=== PATIENT | male | born 1970 | race Caucasian/White ===

== ENCOUNTER 2018-04-15 17:37 | Emergency (ER) | payer MEDICAID, SELFPAY ==
[2018-04-15 17:53] VITALS: BP 136/82; PULSE 74; RESP 16; TEMP 36.7; O2SAT 97
--- NOTE | 2018-04-15 18:08 | W.ED.GENAD ---
Discharge Plan Disposition Patient Disposition: HOME Condition: Improving Discharge Details Chief Complaint: Nk/Back Pain Clinical Impression: Acute lumbar myofascial strain Primary Care Provider: Donna Loyd ED Provider: Mino Emmanuel Home Meds and New Rx's Prescriptions: New methocarbamol 500 mg tablet 500 mg PO Q6H PRN (Reason: Back pain or spasm) Qty: 14 RF: 0 Continued methylphenidate HCl [Ritalin] 10 MG tablet 20 mg PO TID RF: 0 diphenhydramine HCl 25 mg Tablet 25 mg PO QHS PRNRF: 0 Discharge Instructions Instructions: Muscle Strain (ED) Additional Instructions: Remove the Lidoderm patch in 12 hours. May use ibuprofen 600 800 mg per 8 hours for pain. Tylenol if needed for breakthrough pain. May try methocarbamol as prescribed, as needed for muscle pain and spasm. Return for worsening pain, new symptoms, or any other acute concerns. Please follow-up with regular doctor if not improving in 3-5 days time Medical Decision Making 47-year-old male presents from home with days of intermittent episodes of left low back pain that are worse when he bends over and abruptly stands up. He denies any recent illness or injury but does have recent initiation of working at a [employer]. He has normal vital signs. He is tender along the iliacus muscle and paraspinous musculature in the lumbar region. Consistent with lumbar strain. Will treat with Lidoderm patch and trial of methocarbamol. He may continue [id number] medicines including NSAIDs as well. He will follow-up with primary care next week if not improving over the weekend HPI General Mode of arrival: ambulatory. Date/Time Provider Initiated Documentation: 04/15/18 17:49. Limitations to Documentation: no limitations. Information obtained by: patient. History of Present Illness 47 year old M presents to the emergency department with the chief complaint of Left low back pain, described as moderate, Quality is described as aching, Patient proximal and distal. Patient started experiencing this day(s) and it has been intermittent. Rest improves symptom(s), Movement worsens symptoms . Patient notes no other symptoms. and other (No chest pain\difficulty breathing\motor weakness\ or numbness). Patient did receive the following treatments prior to arrival, none Related Data Home Medications Medication Instructions Recorded Confirmed methylphenidate HCl [Ritalin] 20 mg PO TID 02/22/17 04/15/18 diphenhydramine HCl 25 mg PO QHS PRN 04/15/18 04/15/18 methocarbamol 500 mg PO Q6H PRN #14 tab 04/15/18 Previous Rx's Medication Instructions Recorded methocarbamol 500 mg PO Q6H PRN #14 tab 04/15/18 Allergies Allergy/AdvReac Type Severity Reaction Status Date / Time No Known Allergies Allergy Unverified 04/15/18 17:58 General Stated Complaint: Nk/Back Pain BIMAL: 4 Review of Systems Review of Systems 6 systems reviewed and otherwise negative [facility] Social History Smoking/Tobacco Use Status: Current every day Exam Narrative Exam Narrative: GEN: awake, alert, oriented 3. Pleasant, well groomed, interactive. HEAD: Normocephalic, atraumatic ENT: Mucous membranes moist, oropharynx unremarkable, External ear exam unremarkable EYES: PERRL, EOMI NECK: Full ROM, no DAKOTA, no menigismus CHEST/RESP: Nontender, clear to auscultation bilateral, no wheeze/rhonchi/rales CARDIOVASCULAR: RRR, no murmur, rub damian. 2+ Rad pulse bilateral ABDOMEN: Soft, nontender, no mass. +Bowel sounds BACK: Left lumbar paraspinous tenderness and mild spasm present EXT: Full ROM, no edema, no rash. Motor is 5 out of 5 in the bilateral lower extremity. Sensation intact throughout. Gait narrow based with good heel strike Neuro: Grossly normal neurologic exam, conversant, interactive. Psych: Speech fluent, thoughts congruent, affect normal Course Vital Signs Temperature 36.7 C 04/15/18 17:53 Pulse 74 04/15/18 17:53 Respiratory Rate 16 04/15/18 17:53 Blood Pressure 136/82 04/15/18 17:53 Pulse Oximetry 97 04/15/18 17:53 Temperature 36.7 C 04/15/18 17:53 Temperature Source Temporal Artery Scan 04/15/18 17:53 Pulse 74 04/15/18 17:53 Respiratory Rate 16 04/15/18 17:53 Respiratory Effort Non-Labored 04/15/18 17:57 Blood Pressure 136/82 04/15/18 17:53 Blood Pressure Position Sitting 04/15/18 17:53 Pulse Oximetry 97 04/15/18 17:53 Pain Level 4 04/15/18 18:01
--- NOTE | 2018-04-15 18:12 | ED.GENADUL_ITS ---
Discharge Plan Disposition Patient Disposition: HOME Condition: Improving Discharge Details Chief Complaint: Nk/Back Pain Clinical Impression: Acute lumbar myofascial strain Primary Care Provider: Donna Loyd ED Provider: Mino Emmanuel Home Meds and New Rx's Prescriptions: New methocarbamol 500 mg tablet 500 mg PO Q6H PRN (Reason: Back pain or spasm) Qty: 14 RF: 0 Continued methylphenidate HCl [Ritalin] 10 MG tablet 20 mg PO TID RF: 0 diphenhydramine HCl 25 mg Tablet 25 mg PO QHS PRNRF: 0 Discharge Instructions Instructions: Muscle Strain (ED) Additional Instructions: Remove the Lidoderm patch in 12 hours. May use ibuprofen 600 800 mg per 8 hours for pain. Tylenol if needed for breakthrough pain. May try methocarbamol as prescribed, as needed for muscle pain and spasm. Return for worsening pain, new symptoms, or any other acute concerns. Please follow-up with regular doctor if not improving in 3-5 days time Medical Decision Making 47-year-old male presents from home with days of intermittent episodes of left low back pain that are worse when he bends over and abruptly stands up. He denies any recent illness or injury but does have recent initiation of working at a [employer]. He has normal vital signs. He is tender along the iliacus muscle and paraspinous musculature in the lumbar region. Consistent with lumbar strain. Will treat with Lidoderm patch and trial of methocarbamol. He may continue [id number] medicines including NSAIDs as well. He will follow-up with primary care next week if not improving over the weekend HPI General Mode of arrival: ambulatory . Date/Time Provider Initiated Documentation: 04/15/18 17:49 . Limitations to Documentation: no limitations . Information obtained by: patient . History of Present Illness 47 year old M presents to the emergency department with the chief complaint of Left low back pain, described as moderate, Quality is described as aching, Patient proximal and distal. Patient started experiencing this day(s) and it has been intermittent. Rest improves symptom(s), Movement worsens symptoms . Patient notes no other symptoms. and other (No chest pain\difficulty breathing\motor weakness\ or numbness). Patient did receive the following treatments prior to arrival, none Related Data Home Medications Medication Instructions Recorded Confirmed methylphenidate HCl [Ritalin] 20 mg PO TID 02/22/17 04/15/18 diphenhydramine HCl 25 mg PO QHS PRN 04/15/18 04/15/18 methocarbamol 500 mg PO Q6H PRN #14 tab 04/15/18 Previous Rx's Medication Instructions Recorded methocarbamol 500 mg PO Q6H PRN #14 tab 04/15/18 Allergies Allergy/AdvReac Type Severity Reaction Status Date / Time No Known Allergies Allergy Unverified 04/15/18 17:58 General Stated Complaint: Nk/Back Pain BIMAL: 4 Review of Systems Review of Systems 6 systems reviewed and otherwise negative [facility] Social History Smoking/Tobacco Use Status: Current every day Exam Narrative Exam Narrative: GEN: awake, alert, oriented 3. Pleasant, well groomed, interactive. HEAD: Normocephalic, atraumatic ENT: Mucous membranes moist, oropharynx unremarkable, External ear exam unremarkable EYES: PERRL, EOMI NECK: Full ROM, no DAKOTA, no menigismus CHEST/RESP: Nontender, clear to auscultation bilateral, no wheeze/rhonchi/rales CARDIOVASCULAR: RRR, no murmur, rub damian. 2+ Rad pulse bilateral ABDOMEN: Soft, nontender, no mass. +Bowel sounds BACK: Left lumbar paraspinous tenderness and mild spasm present EXT: Full ROM, no edema, no rash. Motor is 5 out of 5 in the bilateral lower extremity. Sensation intact throughout. Gait narrow based with good heel strike Neuro: Grossly normal neurologic exam, conversant, interactive. Psych: Speech fluent, thoughts congruent, affect normal Course Vital Signs Temperature 36.7 C 04/15/18 17:53 Pulse 74 04/15/18 17:53 Respiratory Rate 16 04/15/18 17:53 Blood Pressure 136/82 04/15/18 17:53 Pulse Oximetry 97 04/15/18 17:53 Temperature 36.7 C 04/15/18 17:53 Temperature Source Temporal Artery Scan 04/15/18 17:53 Pulse 74 04/15/18 17:53 Respiratory Rate 16 04/15/18 17:53 Respiratory Effort Non-Labored 04/15/18 17:57 Blood Pressure 136/82 04/15/18 17:53 Blood Pressure Position Sitting 04/15/18 17:53 Pulse Oximetry 97 04/15/18 17:53 Pain Level 4 04/15/18 18:01
[2018-04-15] MEDS: Lidocaine 5% Patch 1 PATCH TP (18:24)
== END 2018-04-15 18:28 | disposition home or self-care (01) ==
LOC: ER 18:17
PROVIDERS: Emergency Provider Emergency Medicine; PCP Nurse Practitioner Family
DX: S39.012A Strain of muscle, fascia and tendon of lower back, initial encounter (principal); X58.XXXA Exposure to other specified factors, initial encounter
CPT/HCPCS: 99283

== ENCOUNTER 2018-11-23 08:49 | Outpatient (CLI) | payer SELFPAY ==
--- NOTE | 2018-11-23 09:56 | DI.US_ITS ---
SYMPTOM/DIAGNOSIS: LEG PAIN, M79.605, DVT, I82.90 LEFT LOWER EXTREMITY ULTRASOUND: The common femoral, superficial femoral and popliteal veins as well as posterior tibial veins appear free of thrombus. Echogenic, partially occluding thrombus is noted in the greater saphenous vein proximally 9 mm. from the saphenofemoral junction. There is also some old appearing, partially occluding thrombus seen in the medial calf region. The patient had a superficial clot in this area on the previous exam from 2017. 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 No evidence of acute DVT.
== END 2018-11-23 09:09 ==
PROVIDERS: PCP Nurse Practitioner Family; Visit Provider Nurse Practitioner Family
DX: M79.662 Pain in left lower leg (principal); I82.812 Embolism and thrombosis of superficial veins of left lower extremity
CPT/HCPCS: 93971

== ENCOUNTER 2019-04-19 19:16 | Emergency (ER) | payer MEDICAID, SELFPAY ==
[2019-04-19 19:31] VITALS: BP 144/85; PULSE 92; RESP 18; TEMP 36.5; O2SAT 95
[2019-04-19 19:36] VITALS: RESP 18
--- NOTE | 2019-04-19 20:35 | ED.GENADUL_ITS ---
Discharge Plan Disposition Patient Disposition: HOME Condition: Good Discharge Details Chief Complaint: Vascular Clinical Impression: Calf pain Primary Care Provider: Luli Allison ED Provider: Eloina Mcmullen Home Meds and New Rx's Prescriptions: Continued methylphenidate HCl [Ritalin] 10 MG tablet 20 mg PO TID RF: 0 lorazepam [Ativan] 0.5 mg Tablet 0.5 mg PO DAILY PRNRF: 0 diphenhydramine HCl 25 mg Tablet 25 mg PO QHS PRNRF: 0 Discharge Instructions Instructions: Leg Pain (ED) Additional Instructions: Encourage rest, ice, elevation. Continue with Tylenol and/or Ibuprofen as needed for discomfort. If you develop increased pain, fevers/chills or other new/worsening symptoms please seek care urgently once again. Follow up with primary care in one week for reevaluation. Referrals: Luli Allison [Primary Care Provider] - Discharge Data Discharge Date/Time-TO BE ENTERED AT DEPARTURE: 04/19/19 22:05 Medical Decision Making Patient is a pleasant 48-year-old male presents today with chief complaint of l eft calf pain x3 weeks. He denies traumatic onset. States the pain is been intermittent. Indicates the lateral aspect of the lower half of the calf is area of maximal discomfort. States the pain is worse with activity. Denies any shortness of breath or chest pain. Reports that he did have a DVT historically but he is no longer anticoagulated. Reports that he was anticoagulated 1 year post DVT. Unclear etiology around the previous clot. States the pain is different than when he had his DVT historically. Denies any fevers or chills. No recent travel. On exam, patient is resting comfortably. Normal cardiac and respiratory exam. Calf is soft and nontender. He has 2+ distal pulses. He does have a small area of ecchymosis over the lateral malleolus and is scant swelling at the area of ecchymosis. There is approximately 1 inch diameter. Patient is not point tender over the lateral malleolus. Does not believe that he injured himself. At this time evening, I am unable to obtain a ultrasound. As he has no known trauma, I highly doubt any bony abnormality. However, with the patient's history, DVT is on my differential. Will obtain a d-dimer. D-dimer is negative at 171. Discussed these findings with the patient. As he does have area of ecchymosis and swelling of the lateral aspect of the ankle, just distal to where the pain was initially indicated by the patient, this may be associated with minor injury leading to ankle sprain. I encouraged rest, ice, elevation. Tylenol and/or ibuprofen as needed for discomfort. He was given return precautions. Advise follow-up with primary care in 1 week if pain is not improving. All his questions and concerns were addressed and is in agreement this plan. HPI General Mode of arrival: ambulatory . Date/Time Provider Initiated Documentation: 04/19/19 20:35 . Limitations to Documentation: no limitations . Information obtained by: patient, family and RN notes reviewed . History of Present Illness 48 year old M presents to the emergency department with the chief complaint of left calf pain, described as moderate, with intensity rated at 7. Quality is described as aching, and is localized to the left and lower extremity. Patient reports no radiation. Patient started experiencing this week(s) (3) and it has been intermittent. No relieving factors improve symptom(s), Movement worsens symptoms . Patient notes no other symptoms.. Patient did receive the following treatments prior to arrival, none Related Data Home Medications Medication Instructions Recorded Confirmed methylphenidate HCl [Ritalin] 20 mg PO TID 02/22/17 04/19/19 diphenhydramine HCl 25 mg PO QHS PRN 04/15/18 04/19/19 lorazepam [Ativan] 0.5 mg PO DAILY PRN 04/19/19 04/19/19 Allergies Allergy/AdvReac Type Severity Reaction Status Date / Time No Known Allergies Allergy Unverified 04/15/18 17:58 General Stated Complaint: Vascular BIMAL: 3 Review of Systems Constitutional Constitutional: Reports as per HPI, Denies chills, Denies fever(s), Denies heada florencia(s) and Denies weakness ENT Ears, Nose, Mouth, and Throat: Denies headache(s) Cardiovascular Cardiovascular: Reports as per HPI, Denies chest pain, Denies dyspnea and Denies dyspnea on exertion Respiratory Respiratory: Reports as per HPI, Denies cough, Denies hemoptysis, Denies pain on inspiration, Denies pain with cough, Denies dyspnea and Denies dyspnea on exertion Musculoskeletal Musculoskeletal: Reports as per HPI and Denies tingling Integumentary/Breasts Skin/Breast: Reports as per HPI, Denies rash and Denies wounds Neurologic Neurologic: Reports as per HPI, Denies headache(s), Denies tingling, Denies paresthesias and Denies weakness [facility] Social History Smoking/Tobacco Use Status: Current every day Tobacco Type: cigarettes Alcohol Intake: current Alcohol Intake frequency: holidays/special occasions only Drug use: Never Substance use type: does not use Do you feel safe at home: Yes Do you feel safe in your relationship?: Yes Exam Const General: cooperative, healthy appearing, comfortable, no acute distress, well developed and well groomed Nutritional Appearance: average body habitus and well nourished Orientation: alert and awake Resp Effort & Inspection: normal respiratory effort, able to speak in complete sentences and no respiratory distress Auscultation: clear to auscultation bilaterally Cardio Rate: regular rate Rhythm: regular rhythm Heart Sounds: S1 normal and S2 normal Skin General skin exam: no rashes or lesions noted Lesions: no lesions Rashes: no rashes Trauma: no lacerations or abrasions Neuro General: alert and awake Cognition: normal cognition Speech: speech normal Gait: normal gait Motor: muscle tone normal throughout Sensory Exam: no sensory deficits noted Extrem General: normal to inspection, full ROM, normal capillary refill, no joint enlargement, no pedal edema, no calf tenderness, normal gait and no calf tenderness bilaterally Left lower extremity: normal to inspection, full ROM, normal capillary refill, no joint enlargement, knee Details: normal to inspection, lower leg (indicates lateral calf as area of pain but none elicited with exam) Details: normal to inspection and no edema; no tenderness, no localized swelling, no palpable cords and no crepitus and ankle (small area of ecchymosis and swelling over lateral epicondyle, no pain ) Details: swelling, no edema, normal ROM and ecchymosis; no tenderness, no warmth, no abrasions, no lacerations and achilles tendon exam normal Psych Appearance: grossly normal and well kempt Mental Status: mental status grossly normal Speech and Movement: speech and movement normal Course Vital Signs Vital signs: Vital Signs Temperature 36.5 C 04/19/19 19:31 Pulse 92 H 04/19/19 19:31 Respiratory Rate 18 04/19/19 19:31 Blood Pressure 144/85 H 04/19/19 19:31 Pulse Oximetry 95 04/19/19 19:31 Temperature 36.5 C 04/19/19 19:31 Temperature Source Temporal Artery Scan 04/19/19 19:31 Pulse 92 H 04/19/19 19:31 Respiratory Rate 18 04/19/19 19:36 Respiratory Effort Non-Labored 04/19/19 19:36 Respiratory Depth Normal 04/19/19 19:36 Respiratory Pattern Normal 04/19/19 19:36 Blood Pressure 144/85 H 04/19/19 19:31 Blood Pressure Position Sitting 04/19/19 19:31 Pulse Oximetry 95 04/19/19 19:31 Oxygen Delivery Method Room Air 04/19/19 19:31 Oxygen Flow Rate 0 04/19/19 19:31 Pain Level 7 04/19/19 19:36
[2019-04-19 21:04] LABS: Abs Immature Grans 0.04 k/cumm (0.0-0.09); Absolute Basophil Count 0.02 k/cumm (0.0-0.2); Absolute Eosinophil Count 0.06 k/cumm (0.0-0.7); Absolute Lymphocyte Count 1.89 k/cumm (1.2-3.4); Absolute Monocyte Count 0.93 k/cumm (0.11-0.7); Absolute Neutrophil Count 9.02 k/cumm (1.2-6.7); Basophils % 0.2; Eosinophils % 0.5; HCT 46.5 % (40.0-50.0); Immature Grans % 0.3 %; Lymphocytes % 15.8; Mean Corp. HGB Concentration 34.4 g/dL (32.0-36.0); Mean Corpuscular Hemoglobin 31.5 pg (27.0-33.0); Mean Corpuscular Volume 91.5 fL (80-95); Monocytes % 7.8; Neutrophils % 75.4; Platelet Count 224 x1000/uL (130-400); RBC 5.08 m/cumm (4.50-6.00); White Blood Cell Count 11.96 k/cumm (4.4-10.8)
[2019-04-19 21:16] LABS: INR 1.1 (0.9-1.1); PTT Activated 24.6 sec (21.0-31.4); Prothrombin Time 11.4 sec (9.3-11.0)
[2019-04-19 21:18] LABS: ALT 19 U/L (16-63); AST 12 U/L (15-37); Albumin 4.1 g/dL (3.4-5.0); Alkaline Phosphatase 61 U/L (46-116); BUN 12 mg/dL (7-18); Bilirubin, Total 0.5 mg/dL (0.2-1.0); CREATININE 0.98 mg/dL (0.70-1.30); Calcium 8.6 mg/dL (8.5-10.1); Chloride 104 mmol/L (98-107); Glucose 90 mg/dL (74-106); Potassium 3.4 mmol/L (3.5-5.1); Sodium 143 mmol/L (136-145); Total Protein 7.3 g/dL (6.4-8.2)
[2019-04-19 21:31] LABS: D-Dimer 171 ng/mlFEU (<500)
== END 2019-04-19 22:05 | disposition home or self-care (01) ==
PROVIDERS: Emergency Provider Physician Assistant; PCP Nurse Practitioner Family
DX: M79.662 Pain in left lower leg (principal); R26.2 Difficulty in walking, not elsewhere classified; Z86.718 Personal history of other venous thrombosis and embolism
CPT/HCPCS: 36415; 80053; 99283; 85025; 85379; 85610; 85730

== ENCOUNTER 2020-10-04 11:38 | Outpatient (REF) | payer MEDICAID, SELFPAY ==
[2020-10-04 16:09] LABS: BUN 20 mg/dL (7-18); CREATININE 0.8 mg/dL (0.70-1.30); Calcium 8.6 mg/dL (8.5-10.1); Calculated LDL 88 mg/dL (<100); Chloride 108 mmol/L (98-107); Cholesterol 147 mg/dL (<200); Glucose 84 mg/dL (74-106); HDL Cholesterol 42 mg/dL (40-60); Potassium 4.3 mmol/L (3.5-5.1); Sodium 146 mmol/L (136-145); Triglyceride 87 mg/dL (<150)
== END 2020-10-04 11:39 | disposition home or self-care (01) ==
LOC: LBN 11:38
PROVIDERS: Visit Provider Nurse Practitioner Family
DX: F41.8 Other specified anxiety disorders (principal); F17.200 Nicotine dependence, unspecified, uncomplicated; F90.9 Attention-deficit hyperactivity disorder, unspecified type; Z13.220 Encounter for screening for lipoid disorders
CPT/HCPCS: 80048; 80061

== ENCOUNTER 2021-12-28 17:02 | Emergency (ER) | payer MEDICAID, SELFPAY ==
[2021-12-28 17:25] VITALS: BP 167/93; PULSE 71; RESP 16; TEMP 36.7; O2SAT 98
--- NOTE | 2021-12-28 17:47 | ED.GENADUL_ITS ---
Discharge Plan Disposition Patient Disposition: HOME Condition: Stable Discharge Details Clinical Impression: Lumbago Primary Care Provider: Luli Allison ED Provider: Marcella Tellez Home Meds and New Rx's Prescriptions: New cyclobenzaprine 10 mg tablet 10 mg PO TID PRNQty: 14 0RF Continued methylphenidate HCl [Ritalin] 10 MG tablet 20 mg PO TID lorazepam [Ativan] 0.5 mg Tablet 0.5 mg PO DAILY PRN diphenhydramine HCl 25 mg Tablet 25 mg PO QHS PRN Discharge Instructions Instructions: Low Back Strain (ED) Additional Instructions: Continue light stretching and movement Refrain from lifting more than 10 pounds for the next several days Take ibuprofen 600 mg every 8 hours with food as needed for discomfort You may take Tylenol 650 mg every 6 hours as needed for discomfort The Flexeril can make you drowsy, do not drive for 8 hours after taking this medication or combine with alcohol Recheck with your doctor in 5 days with persistent pain Return earlier should you have changes in bowel or bladder, weakness of your extremities, or with any new or worsening complaints Referrals: Luli Allison [Primary Care Provider] - Medical Decision Making Patient appears well Ambulatory with steady gait Given a prescription for Flexeril, will take ibuprofen and Tylenol Return precautions discussed and patient expressed understanding Medical Records Medical records reviewed: Yes I reviewed the patient's medical records. Lab Data Lab results reviewed: Yes I reviewed the patient's lab results. HPI General Date/Time Provider Initiated Documentation: 12/28/21 17:18 . HPI Narrative: This 49-year-old male presents with back pain along bilateral sides of his lower back. This started after lifting some heavy furniture. This took several hours for onset of pain. Patient took Aleve in an attempt to alleviate the pain but presents secondary to persistent discomfort. Denies any fever or chills. Denies any radiation of pain or weakness. Denies any groin numbness or changes in bowel or bladder. Pain is exacerbated with movement and describes it as an ache. Denies any abdominal pain. Related Data Home Medications Medication Instructions Recorded Confirmed methylphenidate HCl 10 mg tablet 20 mg PO TID 02/22/17 04/19/19 (Ritalin) diphenhydramine HCl 25 mg tablet 25 mg PO QHS PRN 04/15/18 04/19/19 lorazepam 0.5 mg tablet (Ativan) 0.5 mg PO DAILY PRN 04/19/19 04/19/19 cyclobenzaprine 10 mg tablet 10 mg PO TID PRN #14 tabs 12/28/21 Previous Rx's Medication Instructions Recorded cyclobenzaprine 10 mg tablet 10 mg PO TID PRN #14 tabs 12/28/21 Allergies Allergy/AdvReac Type Severity Reaction Status Date / Time No Known Allergies Allergy Unverified 10/04/20 15:37 General Stated Complaint: Nk/Back Pain BIMAL: 4 Review of Systems All systems reviewed & are unremarkable except as noted in HPI and below PFSH All Active Problems (Updated 12/28/21 @ 17:49 by JUSTIN Cordero) Lumbago (Acute) Varicose veins of both lower extremities (Acute) Tobacco dependence (Acute) Depression (Chronic) Chronic anxiety (Acute) Superficial thrombophlebitis (Acute) ADHD (Acute) Eczema, dyshidrotic (Acute) Screening for colon cancer (Acute) Calf pain (Acute) Medical History (Updated 12/28/21 @ 17:49 by JUSTIN Cordero) History of DVT (deep vein thrombosis) Social History (System 10/04/20 @ 15:37 by Nallely Castanon) Smoking/Tobacco Use Status: Current every day Tobacco Type: cigarettes Smoking risk assessment performed?: Yes Alcohol Intake: current Alcohol Intake frequency: holidays/special occasions only Drug use: Never Substance use type: does not use Do you feel safe at home: Yes Do you feel safe in your relationship?: Yes Exam Const General: cooperative and comfortable Orientation: alert and oriented x3 Resp Effort & Inspection: normal respiratory effort Auscultation: clear to auscultation bilaterally Cardio Rate: regular rate Rhythm: regular rhythm Other: distal pulses intact GI Other: No abdominal bruit or pulsatile mass, no CVA tenderness Skin General skin exam: no rashes or lesions noted Neuro General: patient alert and patient oriented x3 Other: Negative straight leg raise, negative Babinski, strength and sensation intact distally, DTRs intact to bilateral lower extremities, Extrem Other: Distal pulses intact Course Vital Signs Vital signs: Vital Signs Temperature 36.7 C 12/28/21 17:25 Pulse 71 12/28/21 17:25 Respiratory Rate 16 12/28/21 17:25 Blood Pressure 167/93 H 12/28/21 17:25 Pulse Oximetry 98 12/28/21 17:25 Temperature 36.7 C 12/28/21 17:25 Temperature Source Temporal Artery Scan 12/28/21 17:25 Pulse 71 12/28/21 17:25 Respiratory Rate 16 12/28/21 17:25 Blood Pressure 167/93 H 12/28/21 17:25 Blood Pressure Position Sitting 12/28/21 17:25 Pulse Oximetry 98 12/28/21 17:25 Oxygen Delivery Method Room Air 12/28/21 17:25 Oxygen Flow Rate 0 12/28/21 17:25
[2021-12-28] MEDS: Cyclobenzaprine 10 MG TAB, 3 TABS/BTL PO (18:07)
[2021-12-28 18:11] VITALS: BP 167/93; PULSE 71; RESP 16; TEMP 36.7; O2SAT 98
== END 2021-12-28 18:50 | disposition home or self-care (01) ==
PROVIDERS: Emergency Provider Physician Assistant; PCP Nurse Practitioner Family
DX: G89.11 Acute pain due to trauma (principal); M54.50 Low back pain, unspecified; F17.210 Nicotine dependence, cigarettes, uncomplicated; X50.0XXA Overexertion from strenuous movement or load, initial encounter
CPT/HCPCS: 99283; 99284

== ENCOUNTER 2022-09-09 15:38 | Emergency (ER) | payer MEDICAID, SELFPAY ==
--- NOTE | 2022-09-09 15:45 | DI.US_ITS ---
Exam(s) US LOWER EXTREMITY VENOUS RT EXAM: US LOWER EXTREMITY VENOUS RT CLINICAL HISTORY: Pain Swelling TECHNIQUE: Right lower extremity venous ultrasound performed using grayscale, color-flow, and spectr al Doppler analysis. COMPARISON: No exams were available for comparison FINDINGS: The right common femoral, femoral and popliteal veins demonstrate normal compressibility, augmentatio n, and color Doppler. The posterior tibial and peroneal veins are patent. The saphenofemoral junctio n is unremarkable. There is no evidence of a Mcgrath cyst. The soft tissues are unremarkable. IMPRESSION: 1. No evidence of a right lower extremity DVT. 2. Findings were discussed with the emergency department at 4:43 p.m. on 09/09/2022. DATA REPOSITORY:
[2022-09-09 15:47] VITALS: BP 149/98; PULSE 76; RESP 15; TEMP 36.3; O2SAT 97
--- NOTE | 2022-09-09 15:57 | ED.GENADUL_ITS ---
Discharge Plan Disposition Patient Disposition: Home Discharge Details Clinical Impression: Varicose veins of right lower extremity Primary Care Provider: Luli Allison ED Provider: Estrellita Benites Home Meds and New Rx's Prescriptions: No Action methylphenidate HCl [Ritalin] 10 MG tablet 20 mg PO TID Patient Comments: pt reports he does not take this lorazepam [Ativan] 0.5 mg Tablet 0.5 mg PO DAILY PRN Patient Comments: pt reports he does not take this med diphenhydramine HCl 25 mg Tablet 25 mg PO QHS PRN Patient Comments: pt states he does not take this med anymore cyclobenzaprine 10 mg tablet 10 mg PO TID PRNQty: 14 0RF Patient Comments: pt states he does not take this med anymore Discharge Instructions Instructions: Leg Pain (ED) Additional Instructions: No evidence of blood clots on the ultrasound today. I do suspect this is from a varicose vein and a superficial spider vein in your thigh. You may apply compr ess wrap to the area alternate ice and heat. Follow-up with your PCP. Follow up with primary care provider in 3-5 days. Return to ED sooner if any worsening or concerns. Increase oral fluids. Please take Tylenol or Ibuprofen with food every 4-6 hours as needed for pain and swelling. Referrals: Luli Allison [Primary Care Provider] - 1 week Discharge Data Discharge Date/Time-TO BE ENTERED AT DEPARTURE: 09/09/22 17:06 Medical Decision Making 51-year-old male presents to the ER with a chief complaint of right leg pain. Patient reports that few weeks ago he hurt his lower back with some radiation to his right leg he reports that his back is better however his leg is still hurting him. He reports that it feels warm he is concerned for DVT he has had a DVT approximately 5 years ago. Negative ultrasound of right lower extremity for DVT. Discussed home care and use suspect this is superficial varicose vein pain. Pain is localized. This text was generated using [email or web address] system, please disregard any oddities of phrase or misspellings. HPI General Mode of arrival: ambulatory . Date/Time Provider Initiated Documentation: 09/09/22 15:49 . Limitations to Documentation: no limitations . Information obtained by: patient, RN notes reviewed and old records reviewed . HPI Narrative: 51-year-old male presents to the ER with a chief complaint of right leg pain. Patient reports that few weeks ago he hurt his lower back with some radiation to his right leg he reports that his back is better however his leg is still hurting him. He reports that it feels warm he is concerned for DVT he has had a DVT approximately 5 years ago. Related Data Home Medications Medication Instructions Recorded Confirmed methylphenidate HCl 10 mg tablet 20 mg PO TID 02/22/17 04/19/19 (Ritalin) diphenhydramine HCl 25 mg tablet 25 mg PO QHS PRN 04/15/18 04/19/19 lorazepam 0.5 mg tablet (Ativan) 0.5 mg PO DAILY PRN 04/19/19 04/19/19 cyclobenzaprine 10 mg tablet 10 mg PO TID PRN #14 tabs 12/28/21 Previous Rx's Medication Instructions Recorded cyclobenzaprine 10 mg tablet 10 mg PO TID PRN #14 tabs 12/28/21 Allergies Allergy/AdvReac Type Severity Reaction Status Date / Time No Known Allergies Allergy Unverified 09/09/22 15:52 General Stated Complaint: Orthopedic BIMAL: 3 PFSH All Active Problems (Updated 09/09/22 @ 16:57 by Estrellita Benites NP) Varicose veins of right lower extremity (Acute) Varicose veins of both lower extremities (Acute) Tobacco dependence (Acute) Depression (Chronic) Chronic anxiety (Acute) Superficial thrombophlebitis (Acute) ADHD (Acute) Eczema, dyshidrotic (Acute) Screening for colon cancer (Acute) Calf pain (Acute) Medical History (Updated 09/09/22 @ 16:57 by Estrellita Benites NP) History of DVT (deep vein thrombosis) Social History (System 10/04/20 @ 15:37 by Nallely Castanon) Smoking/Tobacco Use Status: Current every day Tobacco Type: cigarettes Smoking risk assessment performed?: Yes Alcohol Intake: current Alcohol Intake frequency: holidays/special occasions only Drug use: Never Substance use type: does not use Do you feel safe at home: Yes Do you feel safe in your relationship?: Yes Exam Narrative Exam Narrative: Constitutional: Alert and oriented x3. Appears stated age. Normal body habitus. Chest: RRR, Normal S1, S2, distal pulses intact. Resp: Lungs clear to auscultation bilaterally, no wheezes, rales, or rhonchi. Abdomen: Soft, non-distended, Normoactive bowel sounds all 4 quads. Musculoskeletal: Normal gait, 5/5 strength to all four extremities. Skin: No suspicious rashes or lesions. Capillary refill less than 2 sec. Neurologic: Cranial nerves II-XII intact. Alert and oriented x 3. Motor: No deficits noted. Sensory: Intact bilaterally all 4 extremities. Reflexes: DTR's intact bilaterally.. Hematologic/Lymphatic: No ecchymosis, no lymphadenopathy. Extrem General: normal to inspection Right lower extremity: hip/thigh Details: tenderness Location: of the proximal upper leg Location: medially and ecchymosis (Varicose vein noted in the medial thigh which is tender with palpation and appears localized) Course Vital Signs Vital signs: Vital Signs Temperature 36.3 C L 09/09/22 15:47 Pulse 76 09/09/22 15:47 Respiratory Rate 15 09/09/22 15:47 Blood Pressure 149/98 H 09/09/22 15:47 Pulse Oximetry 97 09/09/22 15:47 Temperature 36.3 C L 09/09/22 15:47 Temperature Source Tympanic 09/09/22 15:47 Pulse 76 09/09/22 15:47 Respiratory Rate 15 09/09/22 15:47 Blood Pressure 149/98 H 09/09/22 15:47 Pulse Oximetry 97 09/09/22 15:47 Oxygen Delivery Method Room Air 09/09/22 15:47 Oxygen Flow Rate 0 09/09/22 15:47 Pain Level 7 09/09/22 15:47
== END 2022-09-09 17:06 | disposition home or self-care (01) ==
PROVIDERS: Emergency Provider Registered Nurse Emergency; PCP Nurse Practitioner Family
DX: I83.91 Asymptomatic varicose veins of right lower extremity (principal)
CPT/HCPCS: 99284; 93971; 99283

== ENCOUNTER 2025-02-20 16:26 | Outpatient (REF) | payer SELFPAY ==
[2025-02-20 22:02] LABS: Anion Gap 5 mmol/L (3-11); BUN 13 mg/dL (9-23); CO2 27.0 mmol/L (20.0-31.0); Calcium 8.7 mg/dL (8.3-10.6); Chloride 111 mmol/L (98-107); Glucose 78 mg/dL (74-106); Potassium 3.9 mmol/L (3.5-5.1); Sodium 143 mmol/L (136-145)
== END 2025-02-20 16:27 | disposition home or self-care (01) ==
LOC: LBN 16:26
PROVIDERS: Visit Provider Nurse Practitioner Family
DX: I10 Essential (primary) hypertension (principal)
CPT/HCPCS: 80048

== ENCOUNTER 2025-02-27 01:06 | Emergency (ER) | payer SELFPAY ==
[2025-02-27] VITALS (23 sets, daily range): BP systolic 117–135; BP diastolic 52–85; PULSE 63–81; RESP 18–37; TEMP 36.3; O2SAT 91–97
--- NOTE | 2025-02-27 01:15 | DI.CT_ITS ---
Exam(s) CT HEAD CERV SPINE FACIAL WO EXAM: CT HEAD CERV SPINE FACIAL WO CLINICAL HISTORY: syncope, hit head. TECHNIQUE: Imaging Protocol: Axial computed tomography images with coronal and sagittal reformatted images were created and reviewed COMPARISON: CT HEAD WITHOUT CONTRAST from 03/15/2009 CR CERVICAL SP. LIMITED (TRAUMA) from 05/09/2012 FINDINGS: CT Head: Ventricles and Extra axial spaces: Normal in size and morphology for the patient's age. Mildly prominent foramen magnum, normal variant. Hemorrhage: None. Cerebral parenchyma: No evidence of acute hemorrhage or acute infarct. Midline shift: None. Brainstem/Cerebellum: Normal. Calvarium: No evidence of fracture. There is a stable area of sclerosis in the right frontal bone compared with the 2010 examination, benign. Visualized Paranasal sinuses/Mastoids: Clear. Soft Tissues: Unremarkable. CT Face: Facial Bones: No fracture is noted in facial bones. The nasal septum is deviated to the left. Question of a fracture versus spur distally. Sinuses and Mastoids: Minimal mucosal thickening at the floor of the left maxillary sinus. Globes, extraocular muscles, optic nerves and retrobulbar fat: Normal. Upper aerodigestive tract: Normal. Mandible and bilateral temporomandibular joints: Multiple dental caries. Soft tissues: Normal. CT Cervical Spine: Bones: No acute fracture or subluxation. The degenerative disc changes and facet degenerative changes. There is a hemangioma in C6. There is degenerative straightening of the normal cervical lordosis. Soft Tissues: Unremarkable. Lung Apices: Clear. IMPRESSION: 1. No acute intracranial process. 2. No acute fracture or subluxation in the cervical spine. Advanced degenerative changes. 3. There is a question of an anterior inferior fracture of the nasal septum of indeterminate age. There is no significant soft tissue swelling and this may be old. The preliminary [facility] report was reviewed. RADIATION DOSE DELIVERED: Total DLP DATA REPOSITORY: All CT scans at this facility are submitted to the National Radiology Data Registry (NRDR) Dose Index Registry (DIR) with the [employer] ([employer]). RADIATION OPTIMIZATION: All CT scans at this facility use at least one of these dose optimization techniques: automated exposure control; mA and/or kV adjustment per patient size (includes targeted exams where dose is matched to clinical indication); or iterative reconstruction.
--- NOTE | 2025-02-27 01:15 | DI.CT_ITS ---
Exam(s) CT CHEST PE CTA EXAM: CT CHEST PE CTA CLINICAL HISTORY: syncope x2, notable anterior chest pain. TECHNIQUE: Imaging Protocol: Axial CT angiography was performed with multi- slice acquisition and multi-planar and/or 3D reconstructions. Lung Computer Aided Detection (CAD) was utilized. CONTRAST MATERIAL: Intravenous: Omnipaque 350 contrast volume:70 mL COMPARISON: CT CHEST FOR PULMONARY EMBOLUS from 03/22/2017 FINDINGS: Tracheobronchial tree: Patent where visualized. No bronchiectasis. Pulmonary parenchyma: No consolidation or dominant measurable mass. There is atelectasis seen in the lung bases. Pulmonary Arteries: No evidence of filling defect to suggest pulmonary emboli. Mediastinum and Teodora: No dominant adenopathy or fluid collection. The esophagus is unremarkable. Visualized thyroid gland: Unremarkable. Pleura: No effusion or pneumothorax. Heart: The heart is not dilated. Mild coronary artery calcification is present. No pericardial effusion. Aorta: Thoracic aorta non-dilated. No evidence of dissection. Atherosclerotic calcification is present. Upper abdomen: Unremarkable. Soft tissues: Unremarkable. Bones: Within normal limits for the patient's age. IMPRESSION: 1. No evidence of pulmonary embolism, thoracic aortic dissection or aneurysm. 2. There is no acute pulmonary process. 3. The preliminary [facility] report was reviewed. RADIATION DOSE DELIVERED: 94.36mGy.cm Total DLP DATA REPOSITORY: All CT scans at this facility are submitted to the National Radiology Data Registry (NRDR) Dose Index Registry (DIR) with the [employer] ([employer]). RADIATION OPTIMIZATION: All CT scans at this facility use at least one of these dose optimization techniques: automated exposure control; mA and/or kV adjustment per patient size (includes targeted exams where dose is matched to clinical indication); or iterative reconstruction.
--- NOTE | 2025-02-27 01:15 | RT.EKG_ITS ---
APPROVED REPORT Exam: Resting ECG Reason for Exam: syncopal episodes Patient Location: E HR:67 bpm ECG Measurements Heart Rate 67 AXIS AK 209 P 48 QRSd 108 QRS -63 QT 379 T -28 QTc 400 Conclusion Sinus rhythm...normal P axis, V-rate 60- 99 Borderline prolonged AK interval...AK >202, V-rate 50- 90 Physician: Inverted T wave in lead III and aVF with mild borderline 1 mm elevation. V2 and V3 have peaking T waves, with slight ST depression. Borderline STEMI criteria.
--- NOTE | 2025-02-27 01:38 | W.ED.GENAD ---
Discharge Plan Disposition Patient Disposition: Transfer-Acute Inpatient Care Specific Acute Inpt Facility: [facility] Condition: Critical Discharge Details Clinical Impression: Non-ST elevation WV (NSTEMI), Chest pain, Syncope, Brain hemangioma Primary Care Provider: Unknown,Unknown ED Provider: Cody Cannon General Date/Time Provider Initiated Documentation: 02/27/25 01:08. HPI Narrative: This is a very pleasant 54-year-old male who does not regularly see a doctor, who does smoke tobacco, has previously had a DVT in the past, but is not on any blood thinners, and does have a more recent diagnosis of hypertension on his recent work related physical, who presents today for evaluation of chest pain. Patient states that yesterday on Wednesday he had 2 episodes of syncope, the first time he fell forward into a door frame, and developed some chest pain at and after that point. His second episode of syncope caused him to fall onto the right side of his chest. He states that they came on suddenly. He does not recall any particular auras but does admit to feeling clammy and sweaty. The pain in his chest has been persistent ever since the initial event. He describes it as sharp in nature, worse with palpation and breathing. He denies any headache or neck pain. He denies any extremity pain or arm pain or shoulder pain. He denies any other complaints. He did take Aleve but this did not improve his. He denies personal history of blood clots WV or stroke. He does have a family history positive for heart attack and stroke in the 70s age range. He denies any IV or illicit drug use. No other complaints at this time. Related Data Allergies Allergy/AdvReac Type Severity Reaction Status Date / Time No Known Allergies Allergy Unverified 02/27/25 01:19 General Stated Complaint: Fall/Non TraumaCriteria BIMAL: 3 Exam Narrative Exam Narrative: 1.Const: Well-nourished, Well-developed, appearing stated age 2.Eyes: PERRL, no conjunctival injection, and symmetrical lids. 3.ENT: Atraumatic external nose and ears. Moist MM. Neck: Symmetric, trachea midline, No thyromegaly. 4.CVS: +S1/S2, Peripheral pulses 2+ and equal in all extremities. Brisk capillary refill in all extremities. 5.RESP: Unlabored respiratory effort. Clear to auscultation bilaterally. No wheezes rales or rhonchi. Tender to palpation on the anterior chest including the left and right parasternal spaces, and the sternum itself. No subcutaneous crepitus. 6.GI: Soft, Nontender/Nondistended, No hepatosplenomegaly. No guarding or rebound. 7.MSK: Normocephalic, Extremities w/o deformity or ttp No cyanosis or clubbing, Normal movement of all extremities.. No midline cervical thoracic or lumbar spine tenderness. No tenderness or evidence of trauma to the skull. 8.Skin: Warm, Dry. No rashes or lesions. 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 Sensation grossly intact, no focal neurologic deficits. 10.Psych: (AAO) x3. Appropriate mood and affect Course Vital Signs Vital signs: Vital Signs Temperature 36.3 C L 02/27/25 01:11 Pulse 71 02/27/25 01:11 Respiratory Rate 18 02/27/25 01:11 Blood Pressure 124/80 02/27/25 01:11 Pulse Oximetry 97 02/27/25 01:11 Temperature 36.3 C L 02/27/25 01:11 Temperature Source Oral 02/27/25 01:11 Pulse 71 02/27/25 01:11 Respiratory Rate 18 02/27/25 01:23 Respiratory Effort Normal, Non-Labored 02/27/25 01:23 Respiratory Depth Normal 02/27/25 01:23 Respiratory Pattern Normal 02/27/25 01:23 Blood Pressure 124/80 02/27/25 01:11 Blood Pressure Position Sitting 02/27/25 01:11 Pulse Oximetry 97 02/27/25 01:11 Oxygen Delivery Method Room Air 02/27/25 01:11 Oxygen Flow Rate 0 02/27/25 01:11 Pain Level 9 02/27/25 01:19 Medical Decision Making This is a very pleasant 54-year-old male who does not regularly see a doctor, who does smoke tobacco, has previously had a DVT in the past, but is not on any blood thinners, and does have a more recent diagnosis of hypertension on his recent work related physical, who presents today for evaluation of chest pain. Patient states that yesterday on Wednesday he had 2 episodes of syncope, the first time he fell forward into a door frame, and developed some chest pain at and after that point. His second episode of syncope caused him to fall onto the right side of his chest. He states that they came on suddenly. He does not recall any particular auras but does admit to feeling clammy and sweaty. The pain in his chest has been persistent ever since the initial event. He describes it as sharp in nature, worse with palpation and breathing. He denies any headache or neck pain. He denies any extremity pain or arm pain or shoulder pain. He denies any other complaints. He did take Aleve but this did not improve his. He denies personal history of blood clots WV or stroke. He does have a family history positive for heart attack and stroke in the 70s age range. He denies any IV or illicit drug use. No other complaints at this time. Exam demonstrates reproducible chest wall tenderness over the anterior sternum and the left and right rib borders. No subcutaneous crepitus. Lung sounds are clear. Bedside limited echo and ultrasound of the lungs shows good lung sliding bilaterally with no evidence of pneumothorax and no evidence of pericardial tamponade or effusion. Good cardiac contractility, questionable wall motion abnormality for the left lateral border of the heart. EKG was ordered and shows concerning ST changes in the inferior leads, slightly less than a millimeter of elevation in those areas, with atypical ST segment and T wave changes in the anterior leads. While not identical, findings are slightly consistent with the Greer hyperacute T waves. There is also concern for cardiac ischemia with the inferior lead EKG changes. Although it does not clearly meet STEMI criteria and we will reach out to [facility] for further discussion of the EKG findings. I do feel that there is 2 etiologies going on at this time. First is that the patient has had syncope and the differential for this includes PE, dysrhythmia, ACS or WV, electrolyte abnormality, and intercranial etiology. He has no focal neurologic deficits to suggest stroke. However we will get a CT scan of the head and neck. Additionally he also has chest pain, which may be related to a cardiac etiology but certainly does have findings concerning for musculoskeletal component as well from the trauma. We will get CT imaging of the chest to evaluate for PE especially with his history of DVT, and also to evaluate the osseous structures. Will monitor closely and reassess. EKG was compared today from previous EKG from 2018. At that time he did have some peaking of his T waves in the anterior leads, as well as a very small inverted T wave in lead III, however today's findings are notably more pronounced atypical and concerning. EKG interpretation: Inverted T wave in lead III and aVF with mild borderline 1 mm elevation. V2 and V3 have peaking T waves, with slight ST depression. Borderline STEMI criteria. 2:56 AM I discussed the case with Dr. Haney at [facility] cardiology and he reviewed the EKG with his interventional list, and they do not feel that it meets STEMI criteria. Shortly thereafter the patient's troponin returned and was positive at 50,000. While this is quite high, we did contact [facility] again and Dr. Haney does feel that this patient would benefit from cardiac catheterization which I certainly agree. Unfortunately they do not have any beds or capacity available at this time. Recommended that we reach out to other facilities. Patient has received aspirin already and we will start heparin. He does recommend Plavix loading, and will start this as well. Patient does feel slightly improved after the IV Tylenol and aspirin. We will give a single dose of nitroglycerin and cardiology's recommendations. 3:27 AM Repeat 1 hour troponin is also greater than 50,000. I contacted [facility] and spoke with of cardiology, she accepts the patient for transfer. I spoke with the emergency department physician as well and she accepts the patient for transfer for ED to ED. Patient will be transferred via [facility] loan teller level. Patient's pain is improved but not resolved. CTA of the chest shows no dissection or fractures or PE. I have extensively reviewed the treatment plan with the patient. I have addressed all patient concerns at this time. I have also discussed the plan with the admitting physician and they agree with the current assessment and plan and have agreed to assume responsibility for the patient. All parties demonstrate verbal understanding and agreement with our assessment and plan at this time. The documentation in this chart was dictated using [employer] dictation software. Please excuse any dictation errors. At time of transfer the patient was reassessed and continued to demonstrate No signs of acute respiratory distress requiring intubation, hemodynamic instability requiring pressor support, or rapidly declining mental status. FINDINGS: Pulmonary arteries: Normal. No pulmonary emboli. Aorta: Mild atherosclerotic disease of the aorta. Veins: Some contrast is seen refluxing into the IVC. Lungs: Mild basilar septal thickening. Some basilar ground-glass is seen. Basilar reticular densities likely reflecting atelectasis is seen. Pleural spaces: Unremarkable. No pneumothorax. No pleural effusion. Heart: Unremarkable. No cardiomegaly. No pericardial effusion. Coronary arteries: No calcified coronary atherosclerotic disease. Lymph nodes: Unremarkable. No enlarged lymph nodes. Bones/joints: Degenerative changes of the spine. Old lateral left 3rd rib fracture deformity. Soft tissues: Unremarkable. IMPRESSION: 1. No pulmonary embolus. 2. Findings suggest some degree of heart failure/cardiac dysfunction. Correlate clinically. Thank you for allowing us to participate in the care of your patient. Dictated and Authenticated by: Billy Kelley DO 02/27/2025 2:54 AM Eastern Time ([place] & [place]) FINDINGS: Brain: Mild intracranial calcified atherosclerotic disease. Cerebral ventricles: No ventriculomegaly. Paranasal sinuses: Visualized sinuses are unremarkable. No fluid levels. Mastoid air cells: Visualized mastoid air cells are well aerated. Bones: Within the right frontal bone there is a focus of sclerosis with some central serpiginous densities. The outer table associated with the abnormality is intact. Arachnoid cyst versus cranium foramen magnum at the midline posterior fossa. Soft tissues: Unremarkable. IMPRESSION: 1. No acute intracranial process. 2. Right frontal bone sclerosis with serpiginous central density suggesting hemangioma. No aggressive features. Outpatient workup can be pursued. FINDINGS: Paranasal sinuses: No air-fluid levels. Orbital cavities: Orbits are normal. Globes are unremarkable. Nasal cavity: Leftward deviation of the bony nasal septum. There is a break in the bony nasal septum inferiorly and anteriorly (this is best assessed on the axial series 12, image 28 and coronal series 8 images 17 through 21). Teeth: A few scattered absent teeth are seen. Few dental caries are present bilaterally of the maxillary and mandibular teeth. Pharynx: Stones of the palatine tonsils are seen. Bones: No acute fracture. Soft tissues: Unremarkable. IMPRESSION: 1. No acute findings of the bones. 2. Active dental disease. 3. Chronic appearing trauma to the bony nasal septum with leftward deviation (appears chronically fractured as there is no significant inflammatory change of the soft tissue surrounding the fracture site. If there is previous images this would be helpful for interpretation of chronicity FINDINGS: Bones: Diffuse degenerative change4 of the visualized osseous structures. No spinal stenosis. Scattered foraminal stenosis of varying degrees. Cavernous hemangiomas noted in the right posterior aspect of C6. Lungs: Lung apices are normal. Soft tissues: Unremarkable. IMPRESSION: No acute fracture. Thank you for allowing us to participate in the care of your patient. Dictated and Authenticated by: Billy Kelley DO 02/27/2025 3:40 AM Eastern Time ([place] & [place]) Critical Care Time Critical Care Time Critical Care Time: Yes Total Critical Care Time: 60 Attestation: Upon my evaluation, this patient had a high probability of imminent or life-threatening deterioration, which required my direct attention, intervention, and personal management. I have personally provided 60 minutes of critical care time exclusive of time spent on separately billable procedures. Time includes review of laboratory data, radiology results, discussion with consultants, and monitoring for potential decompensation. Interventions were performed as documented. PFSH All Active Problems (Updated 02/27/25 @ 03:46 by Cody Cannon DO) Brain hemangioma (Acute) Syncope (Chronic) Chest pain (Acute) Non-ST elevation WV (NSTEMI) (Acute) Varicose veins of both lower extremities (Acute) Tobacco dependence (Acute) Depression (Chronic) Chronic anxiety (Acute) Superficial thrombophlebitis (Acute) ADHD (Acute) Eczema, dyshidrotic (Acute) Screening for colon cancer (Acute) Calf pain (Acute) Medical History (Updated 02/27/25 @ 03:46 by Cody Cannon DO) History of DVT (deep vein thrombosis) Social History (System 10/04/20 @ 15:37 by Nallely Castanon) Smoking/Tobacco Use Status: Current every day Tobacco Type: cigarettes Smoking risk assessment performed?: Yes Alcohol Intake: current Alcohol Intake frequency: holidays/special occasions only Drug use: Never Substance use type: does not use Do you feel safe at home: Yes Do you feel safe in your relationship?: Yes POCUS Exam (ED) Limited Cardiac Exam DATE OF EXAM: 02/27/25 TIME OF EXAM: 01:52 PROVIDER THAT PERFORMED THE STUDY: Cody Cannon IS THIS A REPEAT EXAM DURING THIS ENCOUNTER: no REASON FOR EXAM: Chest pain VISUALIZED STRUCTURES: Left atrium, Left ventricle, Right ventricle, Mitral valve and Interventricular septum VIEW OBTAINED: Apical 4-Chamber, Parasternal long-axis and Parasternal short-axis PERTINENT FINDINGS/IMPRESSION: Other (Questionable wall motion abnormalities on the left lateral aspect of the heart.) Exam complete Limited Thoracic Lung Exam DATE OF EXAM: 02/27/25 TIME OF EXAM: 01:52 PROVIDER THAT PERFORMED THE STUDY: Cody Cannon IS THIS A REPEAT EXAM DURING THIS ENCOUNTER: No REASON FOR EXAM: Chest pain VISUALIZED STRUCTURES: right anterior and left anterior PERTINENT FINDINGS/IMPRESSION: No apparent abnormalities; lung sliding left side and lung sliding left side Exam complete
[2025-02-27] MEDS: ACETAMINOPHEN 1,000 MG/100 ML BAG 400 MG IVPB (01:45)
[2025-02-27 01:48] LABS: BE (Venous) 0 mmol/L (-2-3); HCO3 (Venous) 26 mmol/L (23-28); O2 Sat (Venous) 58 %; TCO2 (Venous) 23 mmol/L (24-29); pCO2 (Venous) 46 mmHg (41-51); pO2 (Venous) 30 mmHg
[2025-02-27] MEDS: Aspirin 325 MG TAB PO (01:48)
[2025-02-27 01:50] LABS: Abs Immature Grans 0.07 10^3/uL (0.0-0.06); HCT 42.2 % (40.0-50.0); HGB 14.0 g/dL (13.5-17.5); Immature Grans % 0.4 %; MCH 30.0 pg (27.0-33.0); MCHC 33.2 % (32.0-36.0); MCV 91 fL (80-95); MPV 9.2 fL (8.0-11.0); Platelet Count 200 10^3/uL (130-400); RBC 4.66 10^6/uL (4.36-5.78); RDW 11.7 % (11.8-14.1); RDW-SD 38.6 fL; WBC 16.30 10^3/uL (4.4-10.8)
--- NOTE | 2025-02-27 02:00 | RT.EKG_ITS ---
APPROVED REPORT Exam: Resting ECG Reason for Exam: chest pain Patient Location: E HR:67 bpm ECG Measurements Heart Rate 67 AXIS AR 208 P 44 QRSd 110 QRS -58 QT 388 T -31 QTc 411 Conclusion Sinus rhythm...normal P axis, V-rate 60- 99 Borderline prolonged AR interval...AR >202, V-rate 50- 90 Left ventricular hypertrophy...multiple LVH criteria ST elevation secondary to LVH...Multiple VCG criteria Physician: Continued atypical inferior changes, but does not meet stemi criterion
[2025-02-27 02:04] LABS: INR 1.1 (0.9-1.1); PTT Activated 26.3 sec (20.6-30.2); Prothrombin Time 10.6 sec (9.1-11.1)
[2025-02-27 02:10] LABS: ALT 69 U/L (10-49); AST 245 U/L (<34); Albumin 4.2 g/dL (3.2-5.0); Alkaline Phosphatase 61 U/L (46-116); Anion Gap 4.8 mmol/L (3-11); BUN 15 mg/dL (9-23); Bilirubin, Total 0.9 mg/dL (0.2-1.2); CO2 25.2 mmol/L (20.0-31.0); Calcium 8.5 mg/dL (8.3-10.6); Chloride 109 mmol/L (98-107); Glucose 131 mg/dL (74-106); Potassium 3.6 mmol/L (3.5-5.1); Sodium 139 mmol/L (136-145); Total Protein 6.7 g/dL (5.7-8.2)
[2025-02-27 02:11] LABS: TSH (W/Ref FT4) 0.64 uIU/mL (0.55-4.78)
[2025-02-27] MEDS: Normal Saline - Diluent 50 ML VIAL IJ (02:11)
[2025-02-27] MEDS: Omnipaque 350 MG/ML 100 ML BTL IJ (02:11)
[2025-02-27] MEDS: Normal Saline Flush 10 ML SYR IVP (02:12)
[2025-02-27] MEDS: Clopidogrel 300 MG TAB PO (02:51)
--- NOTE | 2025-02-27 02:54 | DI.VRAD_ITS ---
PROCEDURE INFORMATION: Exam: CTA Chest With Contrast Exam date and time: 02/27/2025 2:27 AM Age: 54 years old Clinical indication: Other: Syncope x2, notable anterior chest pain TECHNIQUE: Imaging protocol: Computed tomographic angiography of the chest with contrast. Exam focused on the arteries. 3D rendering (Not supervised by radiologist): MIP and/or 3D reconstructed images were created by the technologist. Radiation optimization: All CT scans at this facility use at least one of these dose optimization techniques: automated exposure control; mA and/or kV adjustment per patient size (includes targeted exams where dose is matched to clinical indication); or iterative reconstruction. Contrast material: OMNIPAQUE 350; Contrast volume: 70 ml; Contrast route: INTRAVENOUS (IV); COMPARISON: CT HEAD CERV SPINE FACIAL WO 02/27/2025 2:11 AM FINDINGS: Pulmonary arteries: Normal. No pulmonary emboli. Aorta: Mild atherosclerotic disease of the aorta. Veins: Some contrast is seen refluxing into the IVC. Lungs: Mild basilar septal thickening. Some basilar ground-glass is seen. Basilar reticular densities likely reflecting atelectasis is seen. Pleural spaces: Unremarkable. No pneumothorax. No pleural effusion. Heart: Unremarkable. No cardiomegaly. No pericardial effusion. Coronary arteries: No calcified coronary atherosclerotic disease. Lymph nodes: Unremarkable. No enlarged lymph nodes. Bones/joints: Degenerative changes of the spine. Old lateral left 3rd rib fracture deformity. Soft tissues: Unremarkable. IMPRESSION: 1. No pulmonary embolus. 2. Findings suggest some degree of heart failure/cardiac dysfunction. Correlate clinically. Dictated and Authenticated by: Billy Kelley MD. Orderin Kassandra Ross MD
[2025-02-27] MEDS: Heparin in 0.45% NaCl 25,000 UNIT/250 ML BAG 9.5 UNIT IVINF (02:56)
[2025-02-27 03:26] LABS: Troponin I > 50000 ng/L (<54)
[2025-02-27] MEDS: nitroGLYcerin 0.4 MG TAB SL (03:28)
[2025-02-27 03:29] LABS: Troponin I > 50000 ng/L (<54)
--- NOTE | 2025-02-27 03:42 | DI.VRAD_ITS ---
PROCEDURE INFORMATION: Exam: CT Head Without Contrast Exam date and time: 02/27/2025 2:11 AM Age: 54 years old Clinical indication: Injury or trauma; Fall; Blunt trauma (contusions or hematomas); With loss of consciousness; Not specified; Nose; Bleeding/hemorrhage; Injury date: 02/27/25; Injury details: Syncope, hit head TECHNIQUE: Imaging protocol: Computed tomography of the head without contrast. Radiation optimization: All CT scans at this facility use at least one of these dose optimization techniques: automated exposure control; mA and/or kV adjustment per patient size (includes targeted exams where dose is matched to clinical indication); or iterative reconstruction. COMPARISON: No relevant prior studies available. FINDINGS: Brain: Mild intracranial calcified atherosclerotic disease. Cerebral ventricles: No ventriculomegaly. Paranasal sinuses: Visualized sinuses are unremarkable. No fluid levels. Mastoid air cells: Visualized mastoid air cells are well aerated. Bones: Within the right frontal bone there is a focus of sclerosis with some central serpiginous densities. The outer table associated with the abnormality is intact. Arachnoid cyst versus cranium foramen magnum at the midline posterior fossa. Soft tissues: Unremarkable. IMPRESSION: 1. No acute intracranial process. 2. Right frontal bone sclerosis with serpiginous central density suggesting hemangioma. No aggressive features. Outpatient workup can be pursued. PROCEDURE INFORMATION: Exam: CT Maxillofacial Without Contrast Exam date and time: 02/27/2025 2:11 AM Age: 54 years old Clinical indication: Injury or trauma; Fall; Blunt trauma (contusions or hematomas); With loss of consciousness; Not specified; Nose; Bleeding/hemorrhage; Injury date: 02/27/25; Injury details: Syncope, hit head TECHNIQUE: Imaging protocol: Computed tomography of the face without contrast. Radiation optimization: All CT scans at this facility use at least one of these dose optimization techniques: automated exposure control; mA and/or kV adjustment per patient size (includes targeted exams where dose is matched to clinical indication); or iterative reconstruction. COMPARISON: No relevant prior studies available. FINDINGS: Paranasal sinuses: No air-fluid levels. Orbital cavities: Orbits are normal. Globes are unremarkable. Nasal cavity: Leftward deviation of the bony nasal septum. There is a break in the bony nasal septum inferiorly and anteriorly (this is best assessed on the axial series 12, image 28 and coronal series 8 images 17 through 21). Teeth: A few scattered absent teeth are seen. Few dental caries are present bilaterally of the maxillary and mandibular teeth. Pharynx: Stones of the palatine tonsils are seen. Bones: No acute fracture. Soft tissues: Unremarkable. IMPRESSION: 1. No acute findings of the bones. 2. Active dental disease. 3. Chronic appearing trauma to the bony nasal septum with leftward deviation (appears chronically fractured as there is no significant inflammatory change of the soft tissue surrounding the fracture site. If there is previous images this would be helpful for interpretation of chronicity PROCEDURE INFORMATION: Exam: CT Cervical Spine Without Contrast Exam date and time: 02/27/2025 2:11 AM Age: 54 years old Clinical indication: Injury or trauma; Fall; Blunt trauma (contusions or hematomas); With loss of consciousness; Not specified; Nose; Bleeding/hemorrhage; Injury date: 02/27/25; Injury details: Syncope, hit head TECHNIQUE: Imaging protocol: Computed tomography of the cervical spine without contrast. Radiation optimization: All CT scans at this facility use at least one of these dose optimization techniques: automated exposure control; mA and/or kV adjustment per patient size (includes targeted exams where dose is matched to clinical indication); or iterative reconstruction. COMPARISON: No relevant prior studies available. FINDINGS: Bones: Diffuse degenerative change4 of the visualized osseous structures. No spinal stenosis. Scattered foraminal stenosis of varying degrees. Cavernous hemangiomas noted in the right posterior aspect of C6. Lungs: Lung apices are normal. Soft tissues: Unremarkable. IMPRESSION: No acute fracture. Dictated and Authenticated by: Billy Kelley MD. Orderin Kassandra Ross MD
[2025-02-27 19:06] LABS: Hepatitis A Antibody IgM Negative (Negative); Hepatitis C Ab w Rflx HCV PCR Negative (Negative)
== END 2025-02-27 04:10 | disposition short-term general hospital (02) ==
PROVIDERS: Emergency Provider Student in an Organized Health Care Education/Training Program
DX: I21.4 Non-ST elevation (NSTEMI) myocardial infarction (principal); R55 Syncope and collapse; R07.9 Chest pain, unspecified; D18.02 Hemangioma of intracranial structures; I10 Essential (primary) hypertension; F17.210 Nicotine dependence, cigarettes, uncomplicated
CPT/HCPCS: 36415; 71275; 76604; 80053; 82805; 86704; 86709; 86803; 87340; 93005; 93308; 96374; 99285; 70450; 70486; 72125; 83880; 84443; 84484; 85025; 85610; 85730; 93010; J0131; J1644; J3490